=== PATIENT | male | born 1935 | race Caucasian/White ===

== ENCOUNTER 2023-10-18 14:37 | Outpatient (CLI) | payer MEDICARE, BC, SELFPAY ==
--- NOTE | ~2023-10-18 | XR_ITS ---
EXAMINATION: XR chest 2V 10/18/2023 14:50 INDICATION: Shortness of breath PROCEDURE: 2 view chest COMPARISON: 10/04/2005 FINDINGS: The lungs are clear. The cardiomediastinal silhouette is within normal limits. There are no pleural effusions. There is no pneumothorax suspected. IMPRESSION: 1: NO ACUTE CARDIOPULMONARY DISEASE. Reviewed, dictated and finalized at location B.
== END 2023-10-18 14:38 ==
LOC: GOSHIMG 14:38
PROVIDERS: PCP Nurse Practitioner Family; Visit Provider Nurse Practitioner Family
DX: R06.02 Shortness of breath (principal)
CPT/HCPCS: 71046

== ENCOUNTER 2023-10-24 08:20 | Observation (INO) | payer MEDICARE, BC, SELFPAY ==
[2023-10-24] VITALS (27 sets, daily range): BP systolic 97–134; BP diastolic 44–86; PULSE 63–83; RESP 14–25; TEMP 36.3–36.8; O2SAT 93–100; BMI 32.8
--- NOTE | 2023-10-24 | ECHO_ITS ---
Patient Info Name: Jossue Olmos Age: 88 years : 1935 Gender: Male Ht: 72 in Wt: 241 lbs BSA: 2.39 m2 HR: 66 bpm BP: 110 / 77 mmHg Heart Rhythm: Sinus Rhythm Technical Quality: Fair Exam Date: 10/24/2023 3:56 PM Exam Location: Echo Lab Patient Status: Outpatient Admit Date: 10/24/2023 Staff Ordering Physician: Ailyn Villanueva APRN Employment Coach: Ronald Guillermo RDCS Attending Provider: Kedar Sandoval MD Referring Physician: Rich FERNANDEZ; Exam Type: CA echo dop color flow w con Study Info Indications R55 - Syncope and collapse Complete two-dimensional, color flow and Doppler transthoracic echocardiogram is performed with contrast to opacify the left ventricle and to improve the deliniation of the left ventricle endocardial borders. Contrast/Agitated Saline Contrast/Ag. Saline: Definity Amount: 2.00 ml Existing IV Access: Yes IV Access Condition: patent with no signs of infiltration Summary 1. Essentially unremarkable 2D/Doppler echocardiogram. Left Ventricle Left ventricular chamber dimension is normal. Left ventricular systolic function is normal, estimated at 60-65%. The left ventricular diastolic function is normal. Right Ventricle Right ventricular chamber dimension is normal. Left Atria Left atrial chamber dimension is normal. Right Atria Right atrial chamber dimension is normal. Aortic Valve The aortic valve is normal. Pulmonic Valve The pulmonic valve is normal. Mitral Valve The mitral valve has normal leaflets. Tricuspid Valve The tricuspid valve leaflets are normal. There is trace tricuspid valve regurgitation. Pericardium/Pleural The pericardium appears normal. Aorta The aortic root size at the sinus of Valsalva is normal. Left Ventricular Outflow Tract Name Value Normal LVOT 2D LVOT Diameter 1.92 cm LVOT Doppler LVOT Peak Gradient 4 mmHg LVOT Mean Gradient 2 mmHg LVOT VTI 22.42 cm LVOT VTI/AV VTI Ratio 0.77 LVOT Stroke Volume 64.84 ml LVOT CO 3.70 l/min LVOT CI 1.55 L/min/m2 Pulmonic Valve Name Value Normal PV Doppler PV Peak Gradient 3 mmHg Mitral Valve Name Value Normal MV Doppler MV Decel [place] 349.72 cm/s2 MV PHT 0 s MV Area (PHT) 3.52 cm2 4.00-5.00 MV Diastolic Function MV E Peak Velocity 75.38 cm/s
--- NOTE | ~2023-10-24 | CT_ITS ---
Noncontrast CT scan of the cervical spine Technique: Multiple contiguous axial [address] images of the cervical spine were obtained and rec onstructed in 2D sagittal and coronal planes on the acquisition scanner. Dose reduction technique was used on this scan by utilizing automated exposure control, adjustment of the mA and/or kV according to patient size. The dose-length product (DLP) was 553.95 mGy-cm. Clinical History: Pain Findings: No fractures or dislocations. There is advanced degenerative disc narrowing at C5-C6 and C 6-C7. There is extensive uncovertebral degenerative change throughout the cervical spine. There is ex tensive facet arthropathy in the cervical spine. There is probable mild left neural foraminal narrowi ng at C2-C3. There is bilateral neural foraminal narrowing at C3-C4. There is bilateral neural forami na at C4-C5, severe in the right side. There is severe bilateral neural foraminal narrowing at C5-C6 and C6-C7. No prevertebral soft tissue swelling. Impression: No fracture or subluxation of the cervical spine. Degenerative spondylosis, as above, with multilevel advanced neural foraminal narrowing. Reviewed, dictated and finalized at location . Impression: No fracture or subluxation of the cervical spine. Degenerative spondylosis, as above, with multilevel advanced neural foraminal n arrowing.
--- NOTE | ~2023-10-24 | CT_ITS ---
Non-contrast Head CT History: Syncope, status post fall Technique: Axial non-contrast imaging of the brain was performed. Dose reduction technique was used on this scan by utilizing automated exposure control and iterative reconstruction technique. The dose -length product (DLP) was 605.33 mGy-cm. Findings: There is no evidence of intracranial hemorrhage, mass lesion, or acute infarct. Brain par enchyma appears normal. The ventricles and subarachnoid spaces are normal in size. The calvarium ap pears normal. The visualized paranasal sinuses and mastoid air cells are clear. Impression: No significant abnormality seen. Reviewed, dictated and finalized at location . Impression: No significant abnormality seen.
--- NOTE | ~2023-10-24 | XR_ITS ---
Clinical Indication: Syncope PA and lateral views of the chest: Comparison: 10/18/2023 Findings: The lungs are clear, without evidence of focal consolidation or pleural effusion. Cardiome diastinal silhouette is within normal limits. Bones and soft tissues are unremarkable. Impression: Normal chest. Reviewed, dictated and finalized at location . Impression: Normal chest.
--- NOTE | ~2023-10-24 | XR_ITS ---
Left Knee Technique: AP, lateral, and oblique views were obtained. Clinical History: Pain Findings: No fracture or dislocation is seen. Osseous alignment is anatomic. Joint spaces are preserv ed without degenerative or erosive change. Soft tissues are unremarkable. No joint effusion is seen. Impression: Unremarkable left knee radiographs. Reviewed, dictated and finalized at location . Impression: Unremarkable left knee radiographs.
--- NOTE | ~2023-10-24 | US_ITS ---
EXAMINATION: US carotid duplex BI DATE: 10/24/2023 15:19 INDICATION: Syncope TECHNIQUE: Grayscale, color Doppler, and pulsed Doppler images of the cervical carotid arteries were obtained. The degree of vessel stenosis is placed in one of the following categories: normal, <50%, 5 0-69%, >=70% but less than near-occlusion, near-occlusion, or total occlusion. Note that percent sten osis relative to normal distal artery lumen diameter is indirectly measured from velocity measurement s as described by Justin, et al. Radiology 2003; 229:340-346. Notes: Normal: Peak systolic velocity <125 centimeters/sec and no plaque <50%. Peak systolic velocity <125 ( EDV <40; ICA/CCA PSV ratio <2.0; used these factors only a tandem lesions or low cardiac output or co ntralateral disease) 50-69 %: PSV 125-230 (EDV 40-100; ratio 2-4) >= 70% but less than near occlusion: PSV greater than 230 (EDV > 100; ratio> 4.0) Near Occlusion: PSV that is variable; markedly narrowed lumen Occlusion: Absent flow on color/spectral Doppler and no lumen on hall scale. COMPARISON: None. FINDINGS: RIGHT: The right common carotid artery (CCA) peak systolic velocity (PSV) is 67 cm/s. The right internal car otid artery (ICA) PSV is 72 cm/s. The right ICA end-diastolic velocity (EDV) is 21 cm/s. The right IC A/CCA PSV ratio is 1.1. The external carotid artery (ECA) PSV is 74 cm/s. There is antegrade flow in the right vertebral artery. LEFT: The left CCA PSV is 58 cm/s. The left ICA PSV is 50 cm/s. The left ICA EDV is 15 cm/s. The left ICA/C CA PSV ratio is 0.9. The ECA PSV is 69 cm/s. There is antegrade flow in the left vertebral artery. IMPRESSION: 1. Less than 50% stenosis in the right internal carotid artery by sonographic criteria. 2. Less than 50% stenosis in the left internal carotid artery by sonographic criteria. Reviewed, dictated and finalized at location B. IMPRESSION: 1. Less than 50% stenosis in the right internal carotid artery by sonographic hema robins. 2. Less than 50% stenosis in the left internal carotid artery by sonographic kyle newman.
--- NOTE | 2023-10-24 08:46 | ECG_ITS ---
Test Date: 2023-10-24 08:52:19 Measurements Intervals [place] Rate: 77 P: 0 NC: 0 QRS: -11 QRSD: 90 T: 41 QT: 353 QTc: 401 Interpretive Statements SINUS RHYTHM LOW QRS VOLTAGE IN PRECORDIAL LEADS [QRS DEFLECTION < 1.0 mV IN CHEST LEADS] No previous ECG available for comparison Electronically Signed On 10-24-2023 15:45:55 CDT by Barb Serra M.D.
--- NOTE | 2023-10-24 09:01 | ED.SYNCOPE ---
HPI - Syncope General Chief Complaint: Syncope <Brenna Dykes APRN - Last Filed: 10/24/23 16:48> Stated Complaint: fall, left knee pain <Brenna Dykes APRN - Last Filed: 10/24/23 16:48> Time Seen by Provider: 10/24/23 09:00 <Brenna Dykes APRN - Last Filed: 10/24/23 16:48> Pt is a 88-year-old male who presents to the ER after a fall last night. He reports he was sitting down to eat when he started to feel nauseated. Pt reports he walked to the bathroom because he thought he was going to throw up, and next thing I knew I woke up on the floor. His reports she tried to get pt to come to the ER last night, but he didn't want to come. Pt denies being on any blood thinners. He denies any pain at this time except when he tries to put pressure on his L leg. Pt reports this is a previous injury. He denies chest pain, shortness of breath, and one-sided numbness/tingling/weakness. <Brenna Dykes APRN - Last Filed: 10/24/23 16:48> Related Data Home Medications: Home Medications Medication Instructions Recorded Confirmed blood-glucose meter (True Metrix #1 ea 01/04/19 10/24/23 Glucose Meter) finasteride 5 mg tablet 5 mg PO HS 01/04/19 10/24/23 atorvastatin 10 mg tablet 10 mg PO HS 10/24/23 10/24/23 <Brenna Dykes APRN - Last Filed: 10/24/23 16:48> Allergies/Adverse Reactions: Allergies Allergy/AdvReac Type Severity Reaction Status Date / Time No Known Allergies Allergy Verified 10/18/23 13:53 <Brenna Dykes APRN - Last Filed: 10/24/23 16:48> Review of Systems Review of Systems: All systems reviewed & are unremarkable except as noted in HPI and below <Brenna Dykes APRN - Last Filed: 10/24/23 16:48> PMFSH Past Medical History Medical History: Medical History BPH (benign prostatic hyperplasia) CKD (chronic kidney disease) stage 2, GFR 60-89 ml/min Follows with nephrology Gallbladder & bile duct stone with obstruction Hyperlipidemia Osteoarthritis of left knee Type 2 diabetes mellitus without complications <Brenna Dykes APRN - Last Filed: 10/24/23 16:48> Surgical History Surgical History: Surgical History H/O vasectomy <Brenna Dykes APRN - Last Filed: 10/24/23 16:48> Family History Family History: Family History Mother Carcinoma of colon Family history of malignant neoplasm of breast in first degree relative Sibling Family history of diabetes mellitus in first degree relative Other Family history of chronic obstructive pulmonary disease <Brenna Dykes APRN - Last Filed: 10/24/23 16:48> Social History Social History: Social History Social History: Caffeine-tea Smoking status: Never smoker Second hand tobacco smoke exposure: No Alcohol intake: current Drinks per week: 2 Alcohol use details: very little Substance use: never Substance use type: does not use Do You Feel Safe in your Home?: Yes Lack of Transportation: No Lack of Food: Never True Current Housing: I Have Housing Concerned About Future Housing: No Difficulty Paying Gas/Electric Bills: No Difficulty Paying for Meds: No Currently Unemployed: No Education: Bachelor's Degree Difficulty w/ Childcare or Family Care: No Living arrangements: with family Additional living arrangements comments: Occupation/Education: retired Gender identity (if verbalized by the patient): Male Sexual Orientation (if Verbalized by the Patient): Straight or Heterosexual Spiritual care concerns: No Agree to blood products: Yes <Brenna Dykes APRN - Last Filed: 10/24/23 16:48> Exam Narrative: GENERAL: Well-appearing, well-nourished and in no acute distress.
[2023-10-24 09:09] LABS: Basophils Absolute Auto 0.1 K/mm3 (0.0-0.1); Basophils Percent Auto 0.9 % (0.2-1.2); Eosinophils Absolute Auto 0.3 K/mm3 (0-0.3); Eosinophils Percent Auto 3.9 % (0-4.4); Hematocrit 36.3 % (42.0-52.0); Hemoglobin 11.8 g/dL (14.0-18.0); Immature Granulocyte Absolute 0.04 K/mm3 (0.00-0.031); Immature Granulocyte Percent A 0.5 % (0-0.5); Lymphocytes Absolute Auto 2.01 K/mm3 (0.9-3.2); Lymphocytes Percent Auto 23.5 % (18.3-44.2); Mean Corpuscular HGB Conc 32.5 g/dl (32-36); Mean Corpuscular Hemoglobin 30.5 pg (26-34); Mean Corpuscular Volume 93.8 fl (80-100); Mean Platelet Volume 10.9 fl (7.4-10.4); Monocytes Absolute Auto 0.8 K/mm3 (0.1-0.6); Monocytes Percent Auto 9.4 % (2.6-8.5); Neutrophils Absolute Auto 5.3 K/mm3 (1.3-6.7); Neutrophils Percent Auto 61.8 % (45.5-73.1); Platelet Count Result 252 k/mm3 (150-375); Red Blood Count 3.87 M/mm3 (4.6-6.20); White Blood Count 8.5 K/mm3 (4.5-10.0)
[2023-10-24 09:14] LABS: Alanine Aminotransferase 23 U/L (6-50); Albumin Level 3.9 g/dL (3.5-5.1); Alkaline Phosphatase 43 U/L (38-126); Anion Gap 11 mmol/L (4-12); Aspartate Amino Transferase 27 U/L (17-59); Bilirubin,Total 0.6 mg/dL (0.2-1.3); Blood Urea Nitrogen 23 mg/dL (9-20); Calcium 8.9 mg/dL (8.4-10.2); Carbon Dioxide 23 mmol/L (22-30); Chloride 101 mmol/L (98-107); Estimated CRCL calculation 38 ml/min; Estimated Glomerular Filt Rate 41; Glucose 167 mg/dL (65-110); Potassium 4.4 mmol/L (3.4-5.0); Sodium 135 mmol/L (137-145)
[2023-10-24 09:24] LABS: Prothrombin Time 13.9 Seconds (11.1-14.7)
[2023-10-24 09:25] LABS: Partial Thromboplastin Time 28.9 Seconds (22.3-36.8)
[2023-10-24 09:39] LABS: NT Pro B Type Natriuretic Pept 159 pg/mL (19.9-100); Troponin I < 0.012 ng/mL (0.000-0.034)
--- NOTE | 2023-10-24 11:41 | PC.NURSE ---
assumed care of pt from [facility]. pt resting on stretcher, no distress noted at this time. informed we are waiting on 3-hour troponin as well as urine sample. pt states he will try and provide urine sample
[2023-10-24 12:20] LABS: Add Urine Microscopic? NO; Appearance Urine Clear (Clear); Bilirubin Urine Negative (Negative); Blood Urine Negative (Negative); Color Urine Yellow (Yellow); Glucose Urine UA Negative (Negative); Ketones Urine Negative (Negative); Leukocyte Esterase Ur Negative LEU/UL (Negative); Nitrate Urine Negative (Negative); Protein Urine Negative (Negative); Specific Grav Ur 1.016 (1.001-1.035); pH Urine 5.5 (5.0-9.0)
--- NOTE | 2023-10-24 12:22 | ECG_ITS ---
Test Date: 2023-10-24 12:25:17 Measurements Intervals [place] Rate: 64 P: 3 VA: 183 QRS: -15 QRSD: 82 T: 28 QT: 377 QTc: 390 Interpretive Statements SINUS RHYTHM LOW QRS VOLTAGE BORDERLINE ECG Compared to ECG 10/24/2023 08:52:19 NO DIFFERENCE Electronically Signed On 10-24-2023 17:58:54 CDT by Jose Reich M.D.
[2023-10-24 13:13] LABS: Troponin I < 0.012 ng/mL (0.000-0.034)
--- NOTE | 2023-10-24 13:35 | PC.NURSE ---
Patient before admitted into [facility]
[2023-10-24] MEDS: PERFLUTREN LIPID MICROSPHERES 1.5 ML VIAL DILUTED TO 10 ML TOTAL VOLUME IV PUSH (17:03)
--- NOTE | 2023-10-24 17:04 | IVDEFINITY ---
Prior to administration of IV Definity the patient was educated on the risks and benefits of the imaging enhancing agent including potential adverse side effects. The patient verbalized understanding. Allergies were verified. No exclusion criteria were identified and at least one of the following inclusion criteria were met: 1) physician request, 2) patient technically difficult to image (per the [place] [employer] guidelines of two or more segments not discernable within the apical view), or 3) questionable left ventricular function. ?
--- NOTE | 2023-10-24 17:07 | PC.NURSE ---
This patient, Jossue Olmos, was admitted to Medical Room 342-01. Patient/family oriented to hospital policies and general routines including ID bracelet, bed and alarms, visiting hours, pain management, procedures, bathroom and other care routines, personal items, smoking policy, room service/diet, and visiting hours. Information on how to activate the Rapid Response Team has been discussed. Patient/Family are encouraged to report perceived risks to care and to ask questions if they do not understand what they are told or what they should do.
[2023-10-24 17:27] LABS: Glucose Point of Care 113 mg/dl (65-105)
--- NOTE | 2023-10-24 20:42 | PM.IMHP ---
H&P: HPI History of Present Illness Date/Time: 10/24/23 20:42 Chief Complaint: Syncope Narrative: This is an 88-year-old male with significant past medical history of BPH, chronic kidney disease stage 2, hyperlipidemia, osteoarthritis, type 2 diabetes mellitus who presents for evaluation after a syncopal episode. Patient stated that he felt nauseated at dinnertime and got up to go to the bathroom however passed out before he can get there, hitting his head. He denies any fever, chills, nausea, vomiting, diarrhea, abdominal pain, chest pain, shortness a breath. He denies any sick contacts. He states that he has been eating and drinking okay and has not been out in the heat. Workup in the hospital included head CT which was negative for any acute intracranial process. Cervical spine CT was negative for fracture or subluxation of the cervical spine, showed degenerative spondylosis with multilevel advanced neural foraminal narrowing. Chest x-ray was negative. Left knee x-ray was negative. Carotid Doppler study showed less than 50% stenosis in bilateral internal carotid arteries. Initial labs showed a normal white blood cell count of 8.5, hemoglobin 11.8, sodium 135, INR 1.0, creatinine 1.6, EGFR 41, blood sugar ranging 113-167, last hemoglobin A1c reviewed from 02/03/2023 was 6.2, liver enzymes are normal, troponin negative x2, proBNP 159, TSH 1.870. UA was obtained and was negative. EKG showed sinus rhythm with a rate of 64, QTC 390. Review of Systems Review of Systems: All systems reviewed & are unremarkable except as noted in HPI and below Constitutional: Constitutional: Reports as per HPI and Reports no additional constitutional complaints Eyes: Eyes: Reports as per HPI and Reports no additional eye complaints ENT: Reports system reviewed and no additional complaints, except as documented and Reports as per HPI Cardiovascular: Cardiovascular: Reports as per HPI and Reports no additional cardiovascular complaints Respiratory: Respiratory: Reports as per HPI and Reports no additional respiratory complaints Gastrointestinal: Gastrointestinal: Reports as per HPI and Reports no additional gastrointestinal complaints Genitourinary: Genitourinary: Reports no additional male genitourinary complaints and Reports as per HPI Musculoskeletal: Musculoskeletal: Reports no additional musculoskeletal complaints and Reports as per HPI Integumentary/Breasts: Skin/Breast: Reports system reviewed and no additional complaints, except as docu and Reports as per HPI Neurologic: Reports system reviewed and no additional complaints, except as documented and Reports as per HPI Psychiatric: Psychiatric: Reports no additional psychiatric complaints and Reports as per HPI [facility] Past Medical History Medical History BPH (benign prostatic hyperplasia) CKD (chronic kidney disease) stage 2, GFR 60-89 ml/min Follows with nephrology Gallbladder & bile duct stone with obstruction Hyperlipidemia Osteoarthritis of left knee Type 2 diabetes mellitus without complications Surgical History Surgical History H/O vasectomy Family History Family History Mother Carcinoma of colon Family history of malignant neoplasm of breast in first degree relative Sibling Family history of diabetes mellitus in first degree relative Other Family history of chronic obstructive pulmonary disease Social History Social History Social History: Caffeine-tea Smoking status: Never smoker Second hand tobacco smoke exposure: No Alcohol intake: current Drinks per week: 2 Alcohol use details: very little Substance use: never Substance use type: does not use Do You Feel Safe in your Home?: Yes Lack of Transportation: No Lack of Food: Never
[2023-10-24 20:44] LABS: Glucose Point of Care 140 mg/dl (65-105)
[2023-10-24] MEDS: FINASTERIDE 5 MG TABLET PO (21:24)
[2023-10-24] MEDS: ATORVASTATIN 10 MG TABLET PO (21:24)
[2023-10-25] VITALS (7 sets, daily range): BP systolic 115–126; BP diastolic 66–71; PULSE 67–97; RESP 18–24; TEMP 36.6–36.7; O2SAT 96–99
[2023-10-25 05:55] LABS: Basophils Absolute Auto 0.1 K/mm3 (0.0-0.1); Basophils Percent Auto 0.7 % (0.2-1.2); Eosinophils Absolute Auto 0.3 K/mm3 (0-0.3); Hematocrit 38.8 % (42.0-52.0); Hemoglobin 12.5 g/dL (14.0-18.0); Immature Granulocyte Absolute 0.02 K/mm3 (0.00-0.031); Immature Granulocyte Percent A 0.2 % (0-0.5); Lymphocytes Absolute Auto 2.07 K/mm3 (0.9-3.2); Lymphocytes Percent Auto 25.2 % (18.3-44.2); Mean Corpuscular HGB Conc 32.2 g/dl (32-36); Mean Corpuscular Hemoglobin 30.3 pg (26-34); Mean Corpuscular Volume 93.9 fl (80-100); Monocytes Absolute Auto 0.7 K/mm3 (0.1-0.6); Monocytes Percent Auto 8.7 % (2.6-8.5); Neutrophils Percent Auto 61.2 % (45.5-73.1); Platelet Count Result 262 k/mm3 (150-375); Red Blood Count 4.13 M/mm3 (4.6-6.20); Red Cell Distribution Width 12.9 % (11.5-14.5); White Blood Count 8.2 K/mm3 (4.5-10.0)
[2023-10-25 05:57] LABS: Hemoglobin A1C 6.6 % (<5.7)
[2023-10-25 06:08] LABS: Alanine Aminotransferase 29 U/L (6-50); Albumin Level 3.9 g/dL (3.5-5.1); Alkaline Phosphatase 52 U/L (38-126); Anion Gap 9 mmol/L (4-12); Aspartate Amino Transferase 27 U/L (17-59); Blood Urea Nitrogen 21 mg/dL (9-20); Carbon Dioxide 24 mmol/L (22-30); Chloride 101 mmol/L (98-107); Estimated CRCL calculation 44 ml/min; Estimated Glomerular Filt Rate 48; Glucose 124 mg/dL (65-110); Magnesium 1.8 mg/dL (1.6-2.3); Potassium 4.3 mmol/L (3.4-5.0); Sodium 134 mmol/L (137-145)
[2023-10-25] MEDS: lisinopriL 10 MG TABLET PO (08:20)
[2023-10-25] MEDS: ENOXAPARIN 40 MG/0.4 ML SYRINGE SUB-Q (08:21)
[2023-10-25] MEDS: INSULIN ASPART (*BKC) 100 UNITS/ML SUB-Q (08:24)
[2023-10-25 08:29] LABS: Glucose Point of Care 214 mg/dl (65-105)
--- NOTE | 2023-10-25 09:15 | PM.CNCAR ---
Assessment and Plan Assessment and plan (1) Syncopal episodes: Qualifiers: Encounter type: initial encounter Code(s): R55 - Syncope and collapse Status: Acute Plan this is an 88-year-old man who is was quite healthy who had a syncopal episode the day before admission which was preceded by nausea on the sense that he was going to vomit. His telemetry has been negative since admission to the hospital and his echocardiogram as well as his cardiovascular physical exam are unremarkable. The likely that is this was a vasovagal event triggered by whatever was causing him to become nauseated. At this point I believe he can be discharged from the hospital and going to recommend a 48 hour Holter monitor as an outpatient I will arrange that through my office and then I will see him for follow-up after that data has been collected. Jose Reich MD [facility] History of Present Illness History of Present Illness Consult date/time: 10/25/23 09:15 Reason For Visit: syncopal episode Narrative: this is an 88-year-old man I am seeing at the request of the hospitalist because of a syncopal episode. He came to the hospital emergency room yesterday primarily because he was concerned about knee pain after a syncopal episode and a fall that occurred the day before at home. The day before was in the evening he was about to eat dinner and he says that he felt unwell was symptoms of nausea and felt as though he was about to vomit. Because of this he was on his way to the bathroom in his home and before he got there he lost consciousness he felt lightheaded somewhat flushed and he fell to the floor. His was will their witnessing the event she says that in just a few moments he regained consciousness and did not have any complaints she advised him to come in to the hospital for evaluation but he chose not to until the next day with his knee was hurting enough after this fall where he decided to come in to be evaluated. He did have a laceration about the right eye because of the fall and was seen in the ED and evaluated. His electrocardiograms looked normal and thus far his telemetry looks normal. He denies any prior history of cardiac problems of any kind. He has never had a syncopal episode in the past. The patient states that he is not experiencing chest pain shortness of breath orthopnea PND edema or palpitations. His telemetry since admission to the hospital yesterday is unremarkable. Review of Systems Constitutional: Constitutional: Reports no additional constitutional complaints Eyes: Eyes: Reports no additional eye complaints ENT: Reports system reviewed and no additional complaints, except as documented Cardiovascular: Cardiovascular: Reports as per HPI Respiratory: Respiratory: Reports no additional respiratory complaints Gastrointestinal: Gastrointestinal: Reports nausea Genitourinary: Genitourinary: Reports no additional male genitourinary complaints Musculoskeletal: Musculoskeletal: Reports no additional musculoskeletal complaints Integumentary/Breasts: Skin/Breast: Reports system reviewed and no additional complaints, except as docu Neurologic: Reports as per HPI Endocrine: Endocrine: Reports no additional endocrine complaints Hematologic/Lymphatic: Hematologic/Lymphatic: Reports no additional hematologic/lymphatic complaints Allergic/Immunologic: Allergic/Immunologic: Reports no additional allergic/immunologic complaints [facility] Past Medical History Medical History BPH (benign prostatic hyperplasia) CKD (chronic kidney disease) stage 2, GFR 60-89 ml/min Follows with nephrology Gallbladder & bile duct stone with obstruction Hyperlipidemia Osteoarthritis of left knee Type 2 diabetes mellitus without complications Surgical History Surgical History H/O vasectomy Family History
[2023-10-25 12:28] LABS: Glucose Point of Care 172 mg/dl (65-105)
--- NOTE | 2023-10-25 13:31 | PM.DS ---
DS: Admitting Diagnosis Discharge Date 10/25/23 Admitting Diagnosis Syncopal episode DS: Discharge Diagnosis Discharge Diagnosis (1) Syncopal episodes: Qualifiers: Encounter type: initial encounter Code(s): R55 - Syncope and collapse Status: Acute (2) Type 2 diabetes mellitus without complications: Qualifiers: Diabetes mellitus longterm insulin use: without teacher of the hearing impaired use Qualified Code(s): E11.9 - Type 2 diabetes mellitus without complications Code(s): E11.9 - Type 2 diabetes mellitus without complications Status: Chronic (3) Hyperlipidemia: Qualifiers: Hyperlipidemia type: unspecified Qualified Code(s): E78.5 - Hyperlipidemia, unspecified Code(s): E78.5 - Hyperlipidemia, unspecified Status: Chronic (4) BPH (benign prostatic hyperplasia): Qualifiers: Lower urinary tract symptom presence: symptoms absent Qualified Code(s): N40.0 - Benign prostatic hyperplasia without lower urinary tract symptoms Code(s): N40.0 - Benign prostatic hyperplasia without lower urinary tract symptoms Status: Chronic (5) CKD (chronic kidney disease) stage 2, GFR 60-89 ml/min: Code(s): N18.2 - Chronic kidney disease, stage 2 (mild) Status: Chronic (6) Essential (primary) hypertension: Code(s): I10 - Essential (primary) hypertension Status: Acute DS: Summary Hospital Course Reason for hospitalization: 88-year-old male with significant past medical history of BPH, chronic kidney disease stage 2, hyperlipidemia, osteoarthritis, type 2 diabetes mellitus who presents for evaluation after a syncopal episode. Please see H&P for details. Hospital Course: Vital signs were stable in the ED. Head CT which was negative for any acute intracranial process. He did have a facial laceration requiring sutures in the ED. Cervical spine CT was negative for fracture or subluxation of the cervical spine but showed degenerative spondylosis with multilevel advanced neural foraminal narrowing. Chest x-ray was negative. Left knee x-ray was negative. Carotid Doppler study showed less than 50% stenosis in bilateral internal carotid arteries. Initial labs showed a normal white blood cell count of 8.5, hemoglobin 11.8, sodium 135, INR 1.0, creatinine 1.6, EGFR 41, blood sugar ranging 113-167. A1c was 6.6, liver enzymes were normal, troponin negative x2, proBNP 159, TSH 1.870. UA was negative. EKG showed sinus rhythm with a rate of 64, QTC 390. Repeat Cr 1.4. Echo showing EF 60-65% and normal LV diastolic function. Orthostatic vital signs normal. It was felt his syncopal episode was related to vasovagal episode from his nausea. he has been eating fine here without complaint. Left knee pain is better. No lightheadedness with standing. Cardiology evaluated the patient and felt the patient could be discharged home with plans for outpatient cardiac monitoring. he overall did well and was able to be discharged home on 10/25/23. Status at Discharge Cognitive/behavioral status at discharge: stable Time Spent with Patient Time attestation: Total time spent providing and/or coordinating discharge services: 35 minutes Time spent: Greater than 30 minutes Exam Narrative: AF 97.9 115/66 97 22 99% ra Gen - NARD HEENT - right lateral alesha-orbital bruising with mild edema. Sutures in place. Chest - CTA bilaterally, nml RR CV - RRR S1/S2. Tele showing occasional PVCs Abd - Soft, NT, Positive BS Ext - trace pedal edema to the LLE, left knee soft brace in place. Neuro - Alert and oriented. Nonfocal exam. Psych - Nml mood and affect Skin - Warm and dry DS: Data Data Completed and Pending Labs on day of discharge: Labs from last 24 hours 10/25/23 10/25/23 10/25/23 12:15 08:22 05:12 WBC 8.2 RBC 4.13 L Hgb 12.5 L Hct 38.8 L MCV 93.9 MCH 30.3 MCHC 32.2 RDW 12.9 Plt Count 262 MPV 11.0 H I
== END 2023-10-25 14:30 | disposition home or self-care (01) ==
LOC: ANHED 14:39 → ANH3MED 21:39
PROVIDERS: Nurse Practitioner Acute Care; Student in an Organized Health Care Education/Training Program; Admitting Provider Internal Medicine; Emergency Provider Registered Nurse; PCP Nurse Practitioner Family; Visit Provider Internal Medicine
DX: R55 Syncope and collapse (principal); I12.9 Hypertensive chronic kidney disease with stage 1 through stage 4 chronic kidney disease, or unspecified chronic kidney disease; S01.111A Laceration without foreign body of right eyelid and periocular area, initial encounter; N18.2 Chronic kidney disease, stage 2 (mild); E11.22 Type 2 diabetes mellitus with diabetic chronic kidney disease; N40.0 Benign prostatic hyperplasia without lower urinary tract symptoms; R11.0 Nausea; M17.12 Unilateral primary osteoarthritis, left knee; E78.5 Hyperlipidemia, unspecified; W18.30XA Fall on same level, unspecified, initial encounter; M47.812 Spondylosis without myelopathy or radiculopathy, cervical region; M48.02 Spinal stenosis, cervical region; I65.23 Occlusion and stenosis of bilateral carotid arteries; Z79.84 Long term (current) use of oral hypoglycemic drugs
CPT/HCPCS: 12011; 36415; 70450; 71046; 72125; 73562; 80053; 81003; 82948; 83036; 83735; 83880; 84443; 84484; 85025; 85610; 85730; 93005; 93880; 96372; 96374; 99285; A9270; C8929; G0378; J1650; J1815; Q9957